=== PATIENT | female | born 1990 | race Hispanic/Latino ===

== ENCOUNTER 2018-09-25 05:30 | Inpatient (IN) | payer OTHER ==
[2018-09-25] MEDS ORDERED: Bupivacaine/Epinephrine 0.25% 30 ML VIAL ONE (15:00)
[2018-09-25] MEDS: Lactated Ringer's 1,000 ML IV SCH ×2 (16:43→19:15)
[2018-09-25] MEDS ORDERED: Carboprost 250 MCG/ML AMP IM PRN (16:59)
[2018-09-25] MEDS ORDERED: Acetaminophen 500 MG TAB PO PRN (16:59)
[2018-09-25] MEDS ORDERED: Promethazine HCl 25 MG/ML VIAL IM PRN ×2 (16:59→21:13)
[2018-09-25] MEDS ORDERED: Lidocaine 1% (PF) 30 ML VIAL SC PRN (16:59)
[2018-09-25] MEDS ORDERED: HYDROcodone/Acetaminophen 5/325 mg Tablet PO PRN (16:59)
[2018-09-25] MEDS ORDERED: NS w/ Oxytocin 10 units 500 ML IV SCH (16:59)
[2018-09-25] MEDS ORDERED: Butorphanol Tartrate 1 MG/ML VIAL SLOW IVP PRN (16:59)
[2018-09-25] MEDS ORDERED: Misoprostol 200 MCG TAB PR PRN (16:59)
[2018-09-25] MEDS ORDERED: Ibuprofen 800 MG TAB PO PRN (16:59)
[2018-09-25] MEDS ORDERED: Methylergonovine 0.2 MG/ML VIAL IM PRN (16:59)
[2018-09-25] MEDS ORDERED: Diphenoxylate HCl/Atropine Tablet PO PRN (16:59)
[2018-09-25] MEDS ORDERED: Ondansetron PF 4 MG/2 ML Vial IVP PRN ×2 (16:59→21:13)
[2018-09-25 17:08] VITALS: BMI 38.5
[2018-09-25 17:13] LABS: Hemoglobin 13.7 g/dL (12.0-16.0); Mean Corpuscular HGB CONC 34.8 g/dL (32.0-36.0); Mean Corpuscular Hemoglobin 31.3 pg (27.0-31.0); Mean Platelet Volume 10.2 fL (7.4-10.4); Platelet Count 167 thou/uL (130-400); RBC Distribution Width 12.3 % (11.5-14.5); Red Blood Cell (RBC) Count 4.37 mill/uL (4.20-5.40)
--- NOTE | 2018-09-25 17:19 | PDOC.LDHP ---
Labor and Delivery H&P Chief complaint: scheduled induction HPI: 28yo A1 at 39w1d with A1GDM for IOL. Some painful ctx q 5min. No LOF VB. Current gestational age (weeks): 39 Due date: 10/01/18 Dating criteria: last menstrual period Grav: 3 Para: 1 Current complications: gestational diabetes (A1GDM) Abnormal US findings: No Current medications: pre-bethany vitamins Previous surgical history: none Allergies/Adverse Reactions: Allergies Allergy/AdvReac Type Severity Reaction Status Date / Time No Known Allergies Allergy Verified 09/25/18 17:01 Social history: none - Physical Exam Vital signs reviewed and normal: yes General: NAD Heart: RRR Lungs: CTAB Abdomen: gravid Extremeties: no edema FHT: category 1 [place] contractions every: 5min - Vaginal Exam cm dilated: 4 Effacement: 75% Station: -2 (arom clear) - OB Labs Blood type: O RH: positive Antibody Screen: negative HIV: negative RPR: negative HEPSAg: negative 1 hour GCT: positive 3 hour GTT: positive for GDM GBS: negative Urine drug screen: negative Rubella: immune - Assessment L&D Assessment: medically indicated induction - Plan Plan: admit to L&D, labor augmentation if indicated, informed consent obtained, anesthesia consult for pain management -: Accuchecks q4h, pt declines epidural.
[2018-09-25 17:52] LABS: HBSAg Index 0.23 S/CO (0-0.99); Hep B Surf Ag Non-Reactive S/CO (NonReactive); Syphilis Antibody Nonreactive (Nonreactive); Syphilis Antibody Index 0.05 S/CO (<1.00 Non-Reactive)
[2018-09-25] MEDS ORDERED: Fentanyl 4 mcg/Bup 0.1% Cadd 100 ML ONE (20:19)
[2018-09-25] MEDS ORDERED: Lidocaine 1.5%/Epinephrine 1:200,000 5 ML AMPUL IJ ONE (20:52)
[2018-09-25] MEDS ORDERED: Eucerin (Mineral Oil/Petrolatum,White) 30 gm Jar TOP PRN (21:13)
[2018-09-25] MEDS ORDERED: diphenhydrAMINE 50 MG/ML VIAL IVP PRN (21:13)
[2018-09-25] MEDS ORDERED: Naloxone HCl 0.4 mg/ml Vial IVP PRN ×2 (21:13)
[2018-09-25] MEDS ORDERED: ePHEDrine/0.9% NaCl/PF SYRINGE 50 mg/10 ml SLOW IVP PRN (21:13)
[2018-09-25] MEDS ORDERED: Lactated Ringer's 500 ML IV PRN (21:13)
[2018-09-25] MEDS ORDERED: Acetaminophen 325 MG TAB PO PRN (21:13)
[2018-09-25] MEDS ORDERED: Communication Order-Pharmacy FS SCH (21:15)
[2018-09-25] MEDS ORDERED: Fentanyl 4 mcg/Bupivacaine 0.1% Cassette 100 ML EPIDURAL SCH (21:15)
[2018-09-25] MEDS: NS / Oxytocin 40 units/1000ml 1,000 ML IV PRN (23:04)
--- NOTE | 2018-09-25 23:08 | PDOC.OPDEL ---
OB Operative/Delivery Note Delivery Dr/Surgeon: Silvia Assist: n/a Pre-Delivery Diagnosis: medically indicated induction Procedure/Post Delivery Dx: spontaneous vaginal delivery Weeks gestation: 39 Anesthesia: epidural - Findings A Sex: female - 1 min: 9 - 5 min: 9 - Additional Findings/Plan Placenta delivered: spontaneous Repaired Obstetrical Laceration: none Estimated blood loss: 200cc Post delivery plan: routine recovery
[2018-09-26] MEDS: NS / Oxytocin 40 units/1000ml 1,000 ML IV PRN (00:03)
[2018-09-26] MEDS ORDERED: Ondansetron PF 4 MG/2 ML Vial IVP PRN (02:30)
[2018-09-26] MEDS ORDERED: HYDROcodone/Acetaminophen 5/325 mg Tablet PO PRN ×2 (02:30)
[2018-09-26] MEDS ORDERED: diphenhydrAMINE 25 MG CAP PO PRN (02:30)
[2018-09-26] MEDS ORDERED: NS / Oxytocin 40 units/1000ml 1,000 ML IV SCH (02:30)
[2018-09-26] MEDS ORDERED: Adacel (T-DAP) 0.5 ML SYRINGE IM ONE (02:30)
[2018-09-26] MEDS ORDERED: Lanolin Ointment 7 GM TUBE TOP PRN (02:30)
[2018-09-26] MEDS ORDERED: Benzocaine/Menthol 20-0.5% 60 ML CAN TOP PRN (02:30)
[2018-09-26] MEDS ORDERED: Bisacodyl 10 MG SUPP PR PRN (02:30)
[2018-09-26] MEDS ORDERED: Milk Of Magnesia 30 ML UDCUP PO PRN (02:30)
[2018-09-26] MEDS ORDERED: Preparation H Ointment 28 GM TUBE PR PRN (02:30)
[2018-09-26] MEDS: Ferrous Sulfate 325 MG TAB PO SCH ×2 (08:35→18:31)
[2018-09-26] MEDS: Docusate Calcium (SURFAK) 240 MG CAP PO SCH ×2 (08:42→21:21)
[2018-09-26] MEDS: Ibuprofen 800 MG TAB PO SCH ×3 (08:42→21:21)
[2018-09-26] MEDS: Prenatal Vitamin 1 TAB PO SCH (08:42)
--- NOTE | 2018-09-26 22:29 | PDOC.PP ---
Post Progress Note Post Day #: 1 Subjective: Doing well PO intake tolerated: yes Flatus: yes Ambulation: yes Vital Signs (12 hours) Temp Pulse Resp BP Pulse Ox 09/26/18 20:07 98.1 F 80 20 120/79 99 09/26/18 16:00 97.4 F L 90 18 122/67 98 09/26/18 11:31 98.2 F 75 18 122/78 99 Weight Weight 204 lb - Physical Examination Cardiovascular: no m/r/g Respiratory: clear to auscultation bilaterally Abdominal: + bowel sounds, lochia, no distention, appropriately TTP Extremities: negative homans (B) Neurological: no gross focal deficits Psychiatric: A&Ox3, normal affect Result Diagrams: 09/25/18 16:45 Additional Labs: Post Labs Blood Type O POSITIVE 09/25/18 16:45 Hep Bs Antigen Non-Reactive S/CO (NonReactive) 09/25/18 16:45 (1) Vaginal delivery Status: Acute - Assessment/Plan HX GDM (not on meds) doing well on PPD1...ok with DSC home tomorrow 09/27. I recommenede follow up in 2-4 weeks and discussed PP glucose check.
--- NOTE | 2018-09-27 05:32 | PDOC.PP ---
Post Progress Note Post Day #: 2; Discharge note Subjective: ready for discharge PO intake tolerated: yes Flatus: yes Ambulation: yes Vital Signs (12 hours) Temp Pulse Resp BP Pulse Ox 09/26/18 20:07 98.1 F 80 20 120/79 99 Weight Weight 204 lb - Physical Examination General: NAD Cardiovascular: no m/r/g Respiratory: clear to auscultation bilaterally, non-labored breathing Abdominal: + bowel sounds, lochia, no distention Extremities: negative homans (B) Neurological: no gross focal deficits Psychiatric: A&Ox3, normal affect Result Diagrams: 09/25/18 16:45 Additional Labs: Post Labs Blood Type O POSITIVE 09/25/18 16:45 Hep Bs Antigen Non-Reactive S/CO (NonReactive) 09/25/18 16:45 (1) Vaginal delivery Status: Acute (2) Gestational diabetes Code(s): O24.419 - GESTATIONAL DIABETES MELLITUS IN , UNSP CONTROL Status: Acute - Assessment/Plan PPD2 ready for discharge Recommend follow up for PP glycemic testing
[2018-09-27] MEDS: Ibuprofen 800 MG TAB PO SCH ×2 (07:23→14:20)
[2018-09-27 08:23] VITALS: BP 121/77; TEMP 98
[2018-09-27] MEDS: Docusate Calcium (SURFAK) 240 MG CAP PO SCH (09:21)
[2018-09-27] MEDS: Prenatal Vitamin 1 TAB PO SCH (09:22)
[2018-09-27] MEDS: Ferrous Sulfate 325 MG TAB PO SCH (09:23)
== END 2018-09-27 14:46 | disposition home or self-care (01) | DRG 807 ==
LOC: L&D 16:11 → 3SE 09-26 09:41
PROVIDERS: ADMIT Student in an Organized Health Care Education/Training Program; ATTEND Student in an Organized Health Care Education/Training Program
PROC: 10E0XZZ Delivery of Products of Conception, External Approach (ICD-10-PCS; principal; 2018-09-25)
PROC: 3E033VJ Introduction of Other Hormone into Peripheral Vein, Percutaneous Approach (ICD-10-PCS; 2018-09-25)
DX: O24.429 Gestational diabetes mellitus in childbirth, unspecified control (principal); Z37.0 Single live birth; Z3A.39 39 weeks gestation of pregnancy
CPT/HCPCS: 51702; 85027; 86780; 86850; 86900; 86901; 87340; J2001; J3490